=== PATIENT | male | born 2000 ===

== ENCOUNTER → 2022-04-10 | Day surgery (SDC) | payer OTHER ==
[~2022-04-10] VITALS: Ht 177.8 cm; Wt 77.1 kg
[~2022-04-10] MED LIST: MOTRIN600 MG PO
[2022-04-10 08:27] LABS: BASOPHIL 0.9 % (0-2); HCT 44.5 % (42.0-52.0); HGB 15.1 g/dl (13.2-18.0); LYMPHOCYTE 28.3 % (15-48); MCHC 33.9 g/dL (32.0-36.0); MCV 88.5 fL (78.0-100.0); MONOCYTE 7.6 % (0-12); MPV 10.4 fL (6.0-9.5); NEUTROPHIL 49.7 % (41-80); NRBC 0; PLT 241 K/uL (150-400); RBC 5.03 M/uL (4.70-6.00); RDW 12.5 % (11.5-14.0); WBC 11.5 K/uL (4.0-10.5)
== END | disposition home or self-care (01) ==
LOC: FAS 07:30
PROVIDERS: Oral & Maxillofacial Surgery
DX: K02.9 Dental caries, unspecified (principal); K04.7 Periapical abscess without sinus; K01.1 Impacted teeth; F17.200 Nicotine dependence, unspecified, uncomplicated
CPT/HCPCS: D7140 ×6; D7210 ×17; D7310; 36415; 85025; J1100; J1170; J2250; J7120